=== PATIENT | female | born 1945 | race Two or more races ===

== ENCOUNTER → 2024-08-30 | Outpatient (CLI) | payer MEDICARE, MEDICAID, SELFPAY ==
[2024-08-30 09:14] LABS: Basophils # (Auto) 0.1 Thou/mm3 (0.0-0.2); Basophils % (Auto) 1 % (0-2.5); Eosinophils # (Auto) 0.4 Thou/mm3 (0.0-0.5); Eosinophils % (Auto) 4 % (0-10); Hematocrit 36.8 % (36.0-46.0); Hemoglobin 11.6 g/dL (12.0-16.0); Immature Granulocytes % (Auto) 0 % (0-0); Immature Granulocytes Auto 0.03 Thou/mm3 (0.00-0.00); Lymphocytes # (Auto) 2.3 Thou/mm3 (1.0-4.8); Lymphocytes % (Auto) 25 % (10-50); Mean Corpuscular HGB Conc 31.5 g/dl (31.0-37.0); Mean Corpuscular Hemoglobin 29.8 pg (25.0-35.0); Mean Corpuscular Volume 95 fL (80-100); Monocytes # (Auto) 0.7 Thou/mm3 (0.0-0.8); Monocytes % (Auto) 7 % (0-12); Neutrophils # (Auto) 5.9 Thou/mm3 (1.8-7.7); Neutrophils % (Auto) 63 % (37-80); Nucleated Red Blood Cell % 0 /100 WBC (0); Platelet Count 279 Thou/mm3 (140-440); RDW Standard Deviation 45.7 fL (36.4-46.3); Red Blood Count 3.89 Miln/mm3 (4.00-5.20); White Blood Count 9.4 Thou/mm3 (3.6-11.0)
[2024-08-30 09:27] LABS: Glucose Estimated Average 148 mg/dL (80-131); Hemoglobin A1C 6.8 % Hgb (4.8-6.0)
[2024-08-30 09:43] LABS: Anion Gap 2 (7-16); BUN/Creatinine Ratio 25 Ratio (12-20); Blood Urea Nitrogen 25 mg/dL (9-23); Calcium 9.6 mg/dL (8.3-10.6); Carbon Dioxide 27.6 mMol/L (20.0-31.0); Chloride 110 mMol/L (98-107); Glucose 145 mg/dL (74-106); Osmolality,Calculated 286 (275-295); Potassium 5.2 mMol/L (3.4-5.1); Sodium 140 mMol/L (136-145); eGFR 58 See Note
[2024-08-30 09:49] LABS: Total Iron Binding Capacity 270 mcg/dL (250-425)
[2024-08-30 09:59] LABS: Iron 61 mcg/dL (50-170); Percent Iron Saturation 22 % (20-55); Unsaturated Iron Binding 209 (225-295)
== END | disposition home or self-care (01) ==
LOC: COPL 08:10
PROVIDERS: PCP Family Medicine; Referring Provider Family Medicine; Visit Provider Family Medicine
DX: E11.65 Type 2 diabetes mellitus with hyperglycemia (principal); D64.9 Anemia, unspecified
CPT/HCPCS: 36415; 80048; 83036; 83540; 83550; 85025

== ENCOUNTER → 2024-10-10 | Outpatient (CLI) | payer MEDICARE, MEDICAID, SELFPAY ==
[2024-10-10 09:30] LABS: Basophils # (Auto) 0.1 Thou/mm3 (0.0-0.2); Basophils % (Auto) 1 % (0-2.5); Eosinophils # (Auto) 0.2 Thou/mm3 (0.0-0.5); Eosinophils % (Auto) 2 % (0-10); Hematocrit 35.3 % (36.0-46.0); Hemoglobin 11.3 g/dL (12.0-16.0); Immature Granulocytes % (Auto) 0 % (0-0); Immature Granulocytes Auto 0.02 Thou/mm3 (0.00-0.00); Lymphocytes # (Auto) 2.4 Thou/mm3 (1.0-4.8); Lymphocytes % (Auto) 27 % (10-50); Mean Corpuscular Hemoglobin 30.1 pg (25.0-35.0); Mean Corpuscular Volume 94 fL (80-100); Monocytes # (Auto) 0.5 Thou/mm3 (0.0-0.8); Monocytes % (Auto) 6 % (0-12); Neutrophils # (Auto) 5.8 Thou/mm3 (1.8-7.7); Neutrophils % (Auto) 64 % (37-80); Nucleated Red Blood Cell % 0 /100 WBC (0); Platelet Count 293 Thou/mm3 (140-440); RDW Standard Deviation 44.7 fL (36.4-46.3); Red Blood Count 3.76 Miln/mm3 (4.00-5.20)
[2024-10-10 09:53] LABS: Vitamin B12 828 pg/mL (211-911)
[2024-10-10 10:01] LABS: Alanine Aminotransferase 8 U/L (10-49); Alkaline Phosphatase 94 U/L (46-116); Anion Gap 8 (7-16); Aspartate Amino Transferase 20 U/L (0-34); BUN/Creatinine Ratio 23 Ratio (12-20); Bilirubin,Direct 0.1 mg/dL (0.0-0.3); Bilirubin,Total 0.5 mg/dL (0.3-1.2); Blood Urea Nitrogen 27 mg/dL (9-23); Calcium 9.1 mg/dL (8.3-10.6); Carbon Dioxide 26.1 mMol/L (20.0-31.0); Chloride 105 mMol/L (98-107); Cholesterol 143 mg/dL (132-200); Creatinine (Component) 1.2 mg/dL (0.6-1.3); Glucose 204 mg/dL (74-106); HDL Cholesterol 48 mg/dL (40-60); LDL Cholesterol,Calculated 66 mg/dL (0-130); Osmolality,Calculated 288 (275-295); Potassium 4.9 mMol/L (3.4-5.1); Sodium 139 mMol/L (136-145); Thyroid Stimulating Hormone 0.83 uIU/mL (0.55-4.78); Total Protein 6.9 gm/dL (5.7-8.2); Triglycerides 145 mg/dL (30-150); eGFR 47 See Note
[2024-10-10 11:18] LABS: Glucose Estimated Average 151 mg/dL (80-131); Hemoglobin A1C 6.9 % Hgb (4.8-6.0)
== END | disposition home or self-care (01) ==
LOC: COPL 08:40
PROVIDERS: PCP Family Medicine; Referring Provider Specialist; Visit Provider Specialist
DX: E03.9 Hypothyroidism, unspecified (principal); E11.9 Type 2 diabetes mellitus without complications; E78.00 Pure hypercholesterolemia, unspecified; I11.9 Hypertensive heart disease without heart failure
CPT/HCPCS: 36415; 80048; 80061; 80076; 82607; 83036; 84100; 84443; 85025

== ENCOUNTER 2024-11-10 14:10 | Emergency (ER) | payer MEDICARE, MEDICAID, SELFPAY ==
[2024-11-10 14:11] VITALS: BMI 38.0
[2024-11-10 14:30] VITALS: BP 148/62; PULSE 55; RESP 18; TEMP 36.8; O2SAT 97
--- NOTE | 2024-11-10 14:34 | EKG_ITS ---
[facility] Test Date: 2024-11-10 Pat Name: HARINI GREEN Department: Room: - Gender: Female [employer] Manager: : 1945 Requested By: Mark Leon Order Number: [id number] Reading MD: Mark Leon Measurements Intervals [place] Rate: 55 P: 36 IA: 142 QRS: -1 QRSD: 81 T: 23 QT: 411 QTc: 396 Interpretive Statements SINUS BRADYCARDIA MINIMAL VOLTAGE CRITERIA FOR LVH, CONSIDER NORMAL VARIANT [MEETS CRITERIA IN ONE OF: R(aVL), S(V1), R(V5), R(V5/V6)+S(V1)] Compared to ECG 11/07/2023 13:41:32 Sinus rhythm no longer present /store/S0/[id number].pdf
--- NOTE | 2024-11-10 14:34 | XR_ITS ---
Examination: CT brain head without contrast. 2-D sagittal coronal reconstructions Date and time of exam:November 10, 2024 1524 hrs. Indications: Dizziness lightheadedness today CTDI: vol (mGy):43.8 DLP: (mGycm):855 Technique: Multiple CT axial sections of the brain have been obtained, 5 mm slice thickness. Contrast has not been administered. 2-D sagittal, coronal reconstructions have been obtained Low dose protocols were performed. One or more of the following dose reduction techniques were used; automated exposure control, adjustment of the mA and/or KV according to patient size, use of iterative reconstruction technique. Findings: No significant ventricular enlargement. Intra-axial or extra-axial hemorrhage density is not seen. No mass effect or midline shift Basal cisterns are not remarkable. Fourth ventricle is midline. Cranial vault intact. Impression: Negative for acute hemorrhage, mass effect or midline shift Advise clinical correlation and follow-up accordingly
--- NOTE | 2024-11-10 14:35 | EDRME_ITS ---
Rapid Medical Screening Exam [facility] Arrival date/time: 11/10/24 14:10 79-year-old female with history of hypertension presents to the emergency room with a chief complaint of dizziness x 2 weeks. Patient states for the last 2 days his dizziness has progressively gotten worse. I have greeted and performed a focused initial assessment of this patient. A comprehensive ED assessment and evaluation of the patient, analysis of all test results, and completion of the medical decision making process will be conducted by additional ED providers. Chief Complaint: Dizziness Vital signs: Vital Signs Temperature 98.2 F 11/10/24 14:30 Pulse Rate 55 L 11/10/24 14:30 Respiratory Rate 18 11/10/24 14:30 Blood Pressure 148/62 H 11/10/24 14:30 Pulse Oximetry (%) 97 11/10/24 14:30 Oxygen Delivery Method Room Air 11/10/24 14:30 Vital signs reviewed by provider: Yes
[2024-11-10] MEDS: MECLIZINE HCL 25 MG TABLET 50 MG PO (15:08)
[2024-11-10 15:35] LABS: Basophils # (Auto) 0.1 Thou/mm3 (0.0-0.2); Basophils % (Auto) 1 % (0-2.5); Eosinophils # (Auto) 0.2 Thou/mm3 (0.0-0.5); Eosinophils % (Auto) 2 % (0-10); Hematocrit 36.3 % (36.0-46.0); Hemoglobin 11.7 g/dL (12.0-16.0); Immature Granulocytes % (Auto) 0 % (0-0); Immature Granulocytes Auto 0.04 Thou/mm3 (0.00-0.00); Lymphocytes # (Auto) 2.5 Thou/mm3 (1.0-4.8); Lymphocytes % (Auto) 25 % (10-50); Mean Corpuscular HGB Conc 32.2 g/dl (31.0-37.0); Mean Corpuscular Hemoglobin 30.7 pg (25.0-35.0); Mean Corpuscular Volume 95 fL (80-100); Monocytes # (Auto) 0.5 Thou/mm3 (0.0-0.8); Monocytes % (Auto) 5 % (0-12); Neutrophils # (Auto) 6.6 Thou/mm3 (1.8-7.7); Neutrophils % (Auto) 67 % (37-80); Nucleated Red Blood Cell % 0 /100 WBC (0); Platelet Count 300 Thou/mm3 (140-440); RDW Standard Deviation 44.7 fL (36.4-46.3); Red Blood Count 3.81 Miln/mm3 (4.00-5.20)
[2024-11-10 15:42] LABS: B-Type Natriuretic Peptide 59 pg/mL (0-100)
[2024-11-10 15:44] LABS: Alanine Aminotransferase 19 U/L (10-49); Albumin, Serum 4.5 gm/dL (3.4-4.8); Albumin/Globulin Ratio 1.4 (1.2-2.2); Alkaline Phosphatase 94 U/L (46-116); Anion Gap 7 (7-16); Aspartate Amino Transferase 23 U/L (0-34); BUN/Creatinine Ratio 18 Ratio (12-20); Bilirubin,Total 0.6 mg/dL (0.3-1.2); Blood Urea Nitrogen 21 mg/dL (9-23); Calcium 9.4 mg/dL (8.3-10.6); Calcium (Corrected) 9.4 mg/dL (8.5-10.1); Carbon Dioxide 26.4 mMol/L (20.0-31.0); Chloride 106 mMol/L (98-107); Creatinine (Component) 1.2 mg/dL (0.6-1.3); Estimated Creatinine Clearance 38.8 mL/min (>60); Globulin 3.2 gm/dL (2.3-3.5); Glucose 166 mg/dL (74-106); Osmolality,Calculated 284 (275-295); Potassium 4.8 mMol/L (3.4-5.1); Sodium 139 mMol/L (136-145); Total Protein 7.7 gm/dL (5.7-8.2); Troponin I < 0.020 ng/mL (0.0-0.045); eGFR 47 See Note
[2024-11-10 15:56] LABS: Collection Type, Urine Clean Catch
[2024-11-10 16:03] LABS: Bilirubin,Urine Negative (Negative); Blood,Urine Negative (Negative); Clarity,Urine Clear (Clear/Hazy); Color,Urine Colorless (Lt Yel-Yel); Glucose, Urine 4+ (Negative); Ketones,Urine Negative (Negative); Leukocyte Esterase,Urine Negative (Negative); Nitrite,Urine Negative (Negative); PH,Urine 6.5 (5.0-7.0); Protein,Urine Negative (Neg - Trace); RBC,Urine 1 /hpf (0-3); Specific Gravity,Urine 1.005 (1.001-1.035); Squamous Epithelial Cell,Urine < 1 /hpf (0-5); Urobilinogen,Urine Negative mg/dL (0.0-1.0); WBC,Urine 1 /hpf (0-5)
[2024-11-10 19:16] VITALS: BP 155/74; PULSE 63; RESP 17; TEMP 36.7; O2SAT 99
--- NOTE | 2024-11-10 20:13 | PD.EDDIZZY ---
ED Dizzyness RME/HPI General Chief Complaint: Dizziness Stated Complaint: DIZZINESS, NEAR SYNCOPE [id number] Time Seen by Provider: 11/10/24 19:54 Arrival date/time: 11/10/24 14:10 RME / HPI RME / HPI Narrative: 79-year-old female with history of hypertension presents to the emergency room with a chief complaint of dizziness x 2 weeks. Patient states for the last 2 days his dizziness has progressively gotten worse. Patient was seen by neurologist and was started on scopolamine. Patient dizziness persists. Denies any spinning sensation. Patient is ambulatory denies any fever denies any fall or other complaints. Related Data Home Medications ?Medication ?Instructions ?Recorded ?Confirmed atorvastatin 20 mg tablet (Lipitor) 40 mg PO HS #0 tabs 09/17/16 11/07/23 lisinopril 20 mg tablet 20 mg PO QDAY #0 tabs 03/28/17 11/07/23 amlodipine 5 mg tablet 5 mg PO QDAY 02/15/18 11/07/23 ferrous sulfate 325 mg (65 mg 325 mg PO TID 02/15/18 11/07/23 iron) tablet,delayed release empagliflozin 10 mg tablet 25 mg PO QDAY 03/15/19 11/07/23 (Jardiance) glipizide 5 mg-metformin 500 mg 1 tab PO QID 03/15/19 11/07/23 tablet dicyclomine 10 mg capsule 10 mg PO TID 09/24/20 11/07/23 alprazolam 0.25 mg tablet 0.125 mg PO HS PRN Insomnia 11/08/21 11/07/23 Held on 11/08/21. Instructions: Resume on 11/09/21. metoclopramide HCl 5 mg tablet 5 mg PO TID 11/08/21 11/07/23 Previous Rx's ?Medication ?Instructions ?Recorded cyclobenzaprine 5 mg tablet 5 mg PO .qhs PRN muscle spasm #10 06/01/22 tabs meclizine 25 mg tablet 25 mg PO BID PRN dizziness #14 tabs 11/07/23 diclofenac sodium 1 % topical gel 2 g topical QID #100 grams 12/11/23 lidocaine 5 % topical patch 1 patch topical QDAY PRN pain 12/11/23 (scale score 4-6) #30 ea diazepam 5 mg tablet (Valium) 5 mg PO BID PRN dizziness #14 tabs 11/10/24 Allergies Allergy/AdvReac Type Severity Reaction Status Date / Time hydrocodone Allergy Severe Nausea Verified 11/10/24 14:13 morphine Allergy Severe Vomiting Verified 11/10/24 14:13 codeine AdvReac Severe SICK Verified 11/10/24 14:13 Review of Systems Review of Systems Narrative Review of Systems: Review of system reviewed and within normal limits except mentioned in HPI ED Exam Narrative Physical exam: VITAL SIGNS: Reviewed. GENERAL APPEARANCE: Alert and interactive, follows commands, no acute distress, HEAD AND FACE: Non-traumatic. ENT: PERRL, pink conjunctivitis, eyelid no trauma, Mucous membrane moist. NECK: Supple, nontender, no nuchal rigidity. CHEST: No tenderness, no crepitus, no paradoxical movement, no retractions. LUNGS: Clear, well ventilated, symmetric, no rales, no wheezing, no ronchi, no stridor, good breath sounds bilaterally. HEART: Regular rate, regular rhythm, no murmur, no gallops. ABDOMEN: Soft, positive bowel sounds, nondistended, no guarding, nontender, no rebound, no masses, RECTAL: Deferred. GENITAL: Deferred. NEUROLOGICAL: Gross motor function intact sensory function intact, Appropriate for age. MUSCULOSKELETAL: low back nontender, full range of motion. EXTREMITIES: Nontender, full range of motion. SKIN: Color pink, dry, no rash, no lacerations, no abrasions, no contusions. LYMPHATICS: Deferred. Course Quality Measures none Orders Category Date Time Status EKG (ED ONLY) *Do not use* NOW Care 11/10/24 14:34 Completed Orthostatic Vitals NOW Care 11/10/24 14:[address] head/brain wo con Stat Exams 11/10/24 14:34 Completed EKG (ED Only) Stat Exams 11/10/24 14:34 Draft BNP [B-Type Natriuretic Peptide] Stat Lab 11/10/24 14:57 Completed CBC Stat Lab 11/10/24 14:57 Completed Comprehensive Metabolic Panel Stat Lab 11/10/24 14:57 Completed Troponin I Stat Lab 11/10/24 14:57 Completed Urinalysis Stat Lab 11/10/24 15:42 Completed Urine Culture Stat Lab 11/10/24 15:42 Received Diazepam [Valium] Med 11/10/24 20:10 Discontinued 5 mg PO X1 ONE Meclizine HCl [Antivert] Med 11/10/24 14:34 Discontinued 50 mg PO X1 ONE Vital Signs Vital signs: Vital Signs Temperature 98.2 F 11/10/24 14:30 Pulse Rate 55 L 11/10/24 14:30 Respiratory Rate 18 11/10/24 14:30 Blood Pressure 148/62 H 11/10/24 14:30 Pulse Oximetry (%) 97 11/10/24 14:30 Oxygen Delivery Method Room Air 11/10/24 14:30 Dizziness MDM Narrative MDM Narrative:: 79-year-old female with history of hypertension presents to the emergency room with a chief complaint of dizziness x 2 weeks. Patient states for the last 2 days his dizziness has progressively gotten worse. Patient was seen by neurologist and was started on scopolamine. Patient dizziness persists. Denies any spinning sensation. Patient is ambulatory denies any fever denies any fall or other complaints. Patient's laboratory workup all came back with no leukocytosis, CMP unremarkable except for slightly elevated glucose of [address] scan of the head came back negative for acute hemorrhage. EKG showed sinus bradycardia, ventricular rate of 55 bpm, no ST segment elevation depression noted. Patient was given meclizine with improvement of symptoms Patient was given Valium p.o. in the emergency room with significant improvement in symptoms She was advised to closely follow-up with neurologist next week. Patient appears nontoxic and hemodynamically stable. Patient discharged home and instructed to follow-up with primary care provider in 24 to 48 hours. Instructed to return to the emergency department immediately if worsening of symptoms Patient data External records reviewed:: None Clinical information provided by:: patient Social determinants that could affect healthcare access:: none Patient has the following chronic illnesses:: None How is presenting disease/condition affected by chronic disease/condition?: no chronic disease Evaluation data The following diagnostics were reviewed and interpreted by me:: lab results, radiology exam(s) and EKG tracing(s) Lab and/or radiology exams considered but not ordered:: None Interpretation Summary: See results MDM Medications / Prescriptions Medications or Prescriptions considered but not ordered:: None Medication administrations:: Medication Administration History Discontinued Medications Diazepam (Diazepam 5 Mg Tablet) 5 mg PO X1 ONE Stop: 11/10/24 20:11 Meclizine HCl (Meclizine Hcl 25 Mg Tablet) 50 mg PO X1 ONE Stop: 11/10/24 14:35 Last Admin: 11/10/24 15:08 Dose: 50 mg Documented By: Valium and meclizine Consultations Consultation(s) initiated? (list below): No Diagnosis Dizziness Differential Diagnosis: benign paroxysmal positional vertigo, cerebrovascular accident and other (Dizziness) Most likely diagnosis given after review of the tests above:: Dizziness Admission Indicated Admission indicated?: not indicated Admission Request Was there a request for admission?: No Disposition Plan Disposition Plan: Discharge Discharge Attestation Discharge Attestation: The patient was given an opportunity to ask questions and understood the discharge instructions. Discharge instructions specifically effects, indications for sooner follow up or return to the emergency department, and the expected course of current diagnosis. Patient condition: Stable Discharge Plan Plan Patient Disposition: HOME (Self Care) Disposition Comment: Stable Prescriptions/Referrals Prescriptions/Med Rec: New diazepam [Valium] 5 mg tablet 5 mg PO BID PRN (Reason: dizziness) Qty: 14 0RF No Action atorvastatin [Lipitor] 20 MG tablet 40 mg PO HS Qty: 0 lisinopril 20 MG tablet 20 mg PO QDAY Qty: 0 amlodipine 5 mg Tablet 5 mg PO QDAY ferrous sulfate 325 mg (65 mg iron) Tablet,Delayed Release (Dr/Ec) 325 mg PO TID dicyclomine 10 mg Capsule 10 mg PO TID glipizide-metformin 5-500 mg Tablet 1 tab PO QID Jardiance 10 mg Tablet 25 mg PO QDAY Rx Instructions: at 1200 alprazolam 0.25 mg tablet 0.125 mg PO HS PRN (Reason: Insomnia) Patient Comments: TAKE 1/2 TO 1 (ONE-HALF TO ONE) TABLET BY MOUTH EVERY 12 HOURS NEEDED FOR ANXIETY metoclopramide HCl 5 mg tablet 5 mg PO TID Patient Comments: TOME DALTON TABLETA POR V A ORAL MAHI VECES AL D A 30 MINUTES PRIOR TO MEALS meclizine 25 mg tablet 25 mg PO BID PRN (Reason: dizziness) Qty: 14 0RF cyclobenzaprine 5 mg tablet 5 mg PO .qhs PRN (Reason: muscle spasm) Qty: 10 0RF diclofenac sodium 1 % gel 2 g topical QID Qty: 100 0RF Rx Instructions: apply to back lidocaine 5 % adhesive patch,medicated 1 patch topical QDAY PRN (Reason: pain (scale score 4-6)) Qty: 30 0RF Rx Instructions: leave on most painful area for up to 12 hrs Referrals: No Primary/Family,Physician [Primary Care Provider] - In 1 week Problem List Clinical Impression: Dizziness Patient/Caregiver Discharge Instructions Discharge Activity: activity as tolerated Education Materials: Dizziness Balance Probs Fainting Additional Instructions: Thank you for the opportunity for serving you today. You are stable for discharged . You are advised to: Follow-up with your PCP in 1 to 2 days Return to ED for worsening of symptoms Increase oral fluids Take medication as prescribed Print Language: Kuwaiti Stand Alone Forms: [employer] Award Info., Patient Portal Info Letter PA/TABLE MACHINE OPERATOR Supervising Physician PA/BRITTANIE Supervising Physician: MD Marko
[2024-11-10] MEDS: DIAZEPAM 5 MG TABLET PO (20:16)
== END 2024-11-10 20:22 | disposition home or self-care (01) ==
PROVIDERS: Nurse Practitioner Family; Emergency Provider Emergency Medicine
DX: R42 Dizziness and giddiness (principal); I10 Essential (primary) hypertension
CPT/HCPCS: 36415; 70450; 80053; 81001; 83880; 84484; 85025; 87086; 93005; 99284; A9270

== ENCOUNTER → 2024-12-07 | Outpatient (CLI) | payer MEDICARE, MEDICAID, SELFPAY ==
[2024-12-07 08:44] LABS: Glucose Estimated Average 160 mg/dL (80-131); Hemoglobin A1C 7.2 % Hgb (4.8-6.0)
[2024-12-07 08:48] LABS: Anion Gap 8 (7-16); BUN/Creatinine Ratio 22 Ratio (12-20); Blood Urea Nitrogen 26 mg/dL (9-23); Calcium 8.9 mg/dL (8.3-10.6); Carbon Dioxide 26.5 mMol/L (20.0-31.0); Chloride 109 mMol/L (98-107); Creatinine (Component) 1.2 mg/dL (0.6-1.3); Glucose 122 mg/dL (74-106); Osmolality,Calculated 290 (275-295); Potassium 5.1 mMol/L (3.4-5.1); Sodium 143 mMol/L (136-145); eGFR 47 See Note
== END | disposition home or self-care (01) ==
PROVIDERS: PCP Family Medicine; Referring Provider Family Medicine; Visit Provider Family Medicine
DX: E11.65 Type 2 diabetes mellitus with hyperglycemia (principal)
CPT/HCPCS: 36415; 80048; 83036

== ENCOUNTER 2025-01-27 21:21 | Emergency (ER) | payer MEDICARE, MEDICAID, SELFPAY ==
[2025-01-27 21:29] VITALS: BP 164/72; PULSE 71; RESP 18; TEMP 36.9; O2SAT 95
--- NOTE | 2025-01-27 21:53 | EKG_ITS ---
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
--- NOTE | 2025-01-27 21:53 | XR_ITS ---
Examination: CT brain head without contrast. 2-D sagittal coronal reconstructions Date and time of exam:January 27, 2025, 2222 hours Comparison November 10, 2024. INDICATIONS: Left-sided face and ear pain today CTDI: vol (mGy):43.3 DLP: (mGycm):835 Technique: Multiple CT axial sections of the brain have been obtained, 5 mm slice thickness. Contrast has not been administered. 2-D sagittal, coronal reconstructions have been obtained Low dose protocols were performed. One or more of the following dose reduction techniques were used; automated exposure control, adjustment of the mA and/or KV according to patient size, use of iterative reconstruction technique. Findings: No significant ventricular enlargement. Intra-axial or extra-axial hemorrhage density is not seen. No mass effect or midline shift Basal cisterns are not remarkable. Fourth ventricle is midline. Cranial vault intact. Negative for mastoiditis or otitis media Impression: Negative for acute hemorrhage, mass effect or midline shift
--- NOTE | 2025-01-27 21:54 | EDRME_ITS ---
Rapid Medical Screening Exam [facility] Arrival date/time: 01/27/25 21:21 79F with history of HTN and DM Presents to ED with several months of dizziness. However, several days ago, patient states L-sided ear/facial pain got worse, as well as a source taste in mouth. There is also some tinnitus. Chief Complaint: Dizziness Vital signs: Vital Signs Temperature 98.4 F 01/27/25 21:29 Pulse Rate 71 01/27/25 21:29 Respiratory Rate 18 01/27/25 21:29 Blood Pressure 164/72 H 01/27/25 21:29 Pulse Oximetry (%) 95 01/27/25 21:29 Oxygen Delivery Method Room Air 01/27/25 21:29
[2025-01-27 22:18] LABS: Basophils # (Auto) 0.1 Thou/mm3 (0.0-0.2); Basophils % (Auto) 1 % (0-2.5); Eosinophils # (Auto) 0.3 Thou/mm3 (0.0-0.5); Eosinophils % (Auto) 2 % (0-10); Hematocrit 33.6 % (36.0-46.0); Hemoglobin 11.1 g/dL (12.0-16.0); Immature Granulocytes Auto 0.02 Thou/mm3 (0.00-0.00); Lymphocytes # (Auto) 3.0 Thou/mm3 (1.0-4.8); Lymphocytes % (Auto) 25 % (10-50); Mean Corpuscular HGB Conc 33.0 g/dl (31.0-37.0); Mean Corpuscular Hemoglobin 30.3 pg (25.0-35.0); Mean Corpuscular Volume 92 fL (80-100); Monocytes # (Auto) 0.7 Thou/mm3 (0.0-0.8); Monocytes % (Auto) 6 % (0-12); Neutrophils # (Auto) 7.8 Thou/mm3 (1.8-7.7); Neutrophils % (Auto) 65 % (37-80); Nucleated Red Blood Cell # 0.00 Thou/mm3 (0.00-0.00); Nucleated Red Blood Cell % 0 /100 WBC (0); Platelet Count 310 Thou/mm3 (140-440); RDW Standard Deviation 42.9 fL (36.4-46.3); Red Blood Count 3.66 Miln/mm3 (4.00-5.20); White Blood Count 11.9 Thou/mm3 (3.6-11.0)
--- NOTE | 2025-01-27 22:37 | PD.EDDIZZY ---
ED Dizzyness RME/HPI General Chief Complaint: Dizziness Stated Complaint: DIZZINESS Time Seen by Provider: 01/27/25 22:59 Arrival date/time: 01/27/25 21:21 RME / HPI RME / HPI Narrative: 01/27/25 21:21 79F with history of HTN and DM Presents to ED with several months of dizziness. However, several days ago, patient states L-sided ear/facial pain got worse, as well as a source taste in mouth. There is also some tinnitus. ------ Dr. Lawrence?s Main ED Evaluation: 79yo female with a history of HTN, DM presents to the ED for a chief complaint of dizziness x 3 months. Patient was seen by her PCP when her symptoms started and was given Meclizine, which improved her symptoms, but has since ran out. Patient reports associated nausea, felt faint , and hears a loud sound with pain to her jaw (which worsens her dizziness). Patient was seen by her inspector optical instrument in [place] and was told her heart was fine and to take her prescribed Valium if her symptoms persisted, which she has not. Patient was referred to a neurologist and was supposed to have a scan done, but has not yet. She has not been refered to ENT. She denies any vomiting, diarrhea, decreased hearing or any other associated symptoms. Related Data Home Medications ?Medication ?Instructions ?Recorded ?Confirmed atorvastatin 20 mg tablet (Lipitor) 40 mg PO HS #0 tabs 09/17/16 11/07/23 lisinopril 20 mg tablet 20 mg PO QDAY #0 tabs 03/28/17 11/07/23 amlodipine 5 mg tablet 5 mg PO QDAY 02/15/18 11/07/23 ferrous sulfate 325 mg (65 mg 325 mg PO TID 02/15/18 11/07/23 iron) tablet,delayed release empagliflozin 10 mg tablet 25 mg PO QDAY 03/15/19 11/07/23 (Jardiance) glipizide 5 mg-metformin 500 mg 1 tab PO QID 03/15/19 11/07/23 tablet dicyclomine 10 mg capsule 10 mg PO TID 09/24/20 11/07/23 alprazolam 0.25 mg tablet 0.125 mg PO HS PRN Insomnia 11/08/21 11/07/23 Held on 11/08/21. Instructions: Resume on 11/09/21. metoclopramide HCl 5 mg tablet 5 mg PO TID 11/08/21 11/07/23 Previous Rx's ?Medication ?Instructions ?Recorded cyclobenzaprine 5 mg tablet 5 mg PO .qhs PRN muscle spasm #10 06/01/22 tabs meclizine 25 mg tablet 25 mg PO BID PRN dizziness #14 tabs 11/07/23 diclofenac sodium 1 % topical gel 2 g topical QID #100 grams 12/11/23 lidocaine 5 % topical patch 1 patch topical QDAY PRN pain 12/11/23 (scale score 4-6) #30 ea diazepam 5 mg tablet (Valium) 5 mg PO BID PRN dizziness #14 tabs 11/10/24 meclizine 25 mg tablet 25 mg PO TID PRN dizziness #20 tabs 01/28/25 Allergies Allergy/AdvReac Type Severity Reaction Status Date / Time hydrocodone Allergy Severe Nausea Verified 01/27/25 21:23 morphine Allergy Severe Vomiting Verified 01/27/25 21:23 codeine AdvReac Severe SICK Verified 01/27/25 21:23 Review of Systems Review of Systems Systems Reviewed: All systems reviewed, normal except as documented Past Medical History Past Medical History NEUROLOGIC: Negative Neurological Disorders or Seizures CARDIAC: Positive Cardiac Disorders, Angina, Coronary Artery Disease (HX IN THE PAST), Hypercholesterolemia, Hypertension and Varicose Veins (HAD SURGERY RITA); Negative Congestive Heart Failure, Edema or Cellulitis RESPIRATORY: Positive Sleep Apnea (CPAP); Negative Chronic Obstructive Pulmonary Disease (COPD) or Asthma GASTROINTESTINAL: Positive Gastrointestinal Disorders, Gall Bladder Disease (OPEN) and Obesity; Negative Hepatitis GENITOURINARY: Negative Genitourinary Disorders or Renal Disease REPRODUCTIVE: Positive Previous Pregnancies (X3) MUSCULOSKELETAL: Positive Musculoskeletal Disorders and Fractures (LEFT FOOT. CASTED) ENT: Positive Cataracts (BILAT) ENDOCRINE: Positive Endocrine Disorders, Diabetes Mellitus Type 2 and Hypothyroidism (HAD PARTIAL THYROIDECTOMY TAKES MED); Negative Diabetes Mellitus Type 1 HEMATOLOGIC: Positive Blood Disorders and Anemia (TAKES FERROUS SULFATE); Negative Sickle Cell Disease OTHER HISTORY: Positive Chicken Pox, Measles and Mumps; Negative Hospitalization, Autoimmune Disease, Shingles, Falls, Blood Transfusions, Blood Transfusion Reaction, Anesthesia Reactions, Chemotherapy, Radiation Therapy, MRSA or Cancer Family History FAMILY HISTORY: Positive Family Cardiac Disorders (MOTHER-HTN) and Family Surgery (MOTHER); Negative Family Psychiatric Problems, Family Respiratory Disorders, Family Gastrointestinal Problems, Family Cancer or Family Anesthesia Reaction Surgical History SURGICAL: Positive Cardiac Surgery, Angiogram (5 YEARS AGO), Thyroidectomy (PARTIAL) and Section (X2); Negative Pacemaker Social History SMOKING STATUS: Never smoker ED Exam Narrative Physical exam: GENERAL APPEARANCE: alert and oriented x 4, well-developed, well-nourished, no acute distress VITALS: All vitals were reviewed and the pulse ox is 95% on room air, which is normal according to my interpretation. HEENT: Normocephalic, atraumatic; pupils equal, round, reactive to light; EOMI; nystagmus noted on extraocular movements, mucous membranes pink, moist; oropharynx clear; mild serous effusion at the left ear NECK: Supple LUNGS: CTABL; no wheezes, no rales, no rhonchi HEART: Regular rate, regular rhythm; normal S1, S2; no murmurs ABDOMEN: non distended; normal BS; soft, no tenderness, no guarding, no rebound; no masses, no organomegaly, no hernia BACK: no CVA tenderness EXTREMITIES: atraumatic; no edema NEUROLOGIC: awake; alert and oriented x4; cranial nerves II-XII grossly intact; no focal sensory or motor deficits PSYCHIATRIC: appropriate mood and affect SKIN: warm, dry, normal color; no rashes Course Quality Measures none Orders Category Date Time Status EKG (ED ONLY) *Do not use* NOW Care 01/27/25 21:[address] head/brain wo con Stat Exams 01/27/25 21:53 Completed EKG (ED Only) Stat Exams 01/27/25 21:53 Draft CBC Stat Lab 01/27/25 22:01 Completed CMP [Comprehensive Metabolic Panel] Stat Lab 01/27/25 22:01 Completed Troponin I Stat Lab 01/27/25 22:01 Completed Urinalysis, C/S if Indicated Stat Lab 01/27/25 22:42 Completed Meclizine HCl [Antivert] Med 01/28/25 00:10 Discontinued 25 mg PO X1 ONE Reevaluation(s) Reevaluation #1: Patient states she feels significantly better after receiving Meclizine. Patient is stable to be discharged home. Time: 01:13 Vital Signs Vital signs: Vital Signs Temperature 98.4 F 01/27/25 21:29 Pulse Rate 71 07/11/25 21:29 Respiratory Rate 18 01/27/25 21:29 Blood Pressure 164/72 H 01/27/25 21:29 Pulse Oximetry (%) 95 01/27/25 21:29 Oxygen Delivery Method Room Air 01/27/25 21:29 Dizziness MDM Narrative MDM Narrative:: Scribe Attestation: 01/27/25 - Yael Miguel am scribing for and in the presence of Dr. Lawrence. Patient data External records reviewed:: [facility] previous records (Per chart review, patient was seen here on 11/10/24 for dizziness.) Clinical information provided by:: patient Social determinants that could affect healthcare access:: none Patient has the following chronic illnesses:: DM, HTN, HLD, hypothyroidism How is presenting disease/condition affected by chronic disease/condition?: exacerbated by Evaluation data The following diagnostics were reviewed and interpreted by me:: lab results, radiology exam(s) and EKG tracing(s) Lab and/or radiology exams considered but not ordered:: none Interpretation Summary: WBC 11.9, Creatinine elevated 1.6, Troponin normal. EKG done at 2206, sinus bradycardia, rate of 59, normal intervals, normal axis, no acute ST or T wave changes, according to my interpretation. [facility] Report Signed Patient: HARINI GREEN Record#: [id number] Birthdate: 1945 Age/Sex: 79 / F Location: [facility] Attending Dr: Ordering Physician: Benjamin Hernandez PA-C Date of Service: 01/27/25 Procedure(s): CT head/brain wo con Accession Number(s): [id number] cc: Van Huerta MD; Benjamin Hernandez PA-C~ Examination: CT brain head without contrast. 2-D sagittal coronal reconstructions Date and time of exam:January 27, 2025, 2222 hours Comparison November 10, 2024. INDICATIONS: Left-sided face and ear pain today CTDI: vol (mGy):43.3 DLP: (mGycm):835 Technique: Multiple CT axial sections of the brain have been obtained, 5 mm slice thickness. Contrast has not been administered. 2-D sagittal, coronal reconstructions have been obtained Low dose protocols were performed. One or more of the following dose reduction techniques were used; automated exposure control, adjustment of the mA and/or KV according to patient size, use of iterative reconstruction technique. Findings: No significant ventricular enlargement. Intra-axial or extra-axial hemorrhage density is not seen. No mass effect or midline shift Basal cisterns are not remarkable. Fourth ventricle is midline. Cranial vault intact. Negative for mastoiditis or otitis media Impression: Negative for acute hemorrhage, mass effect or midline shift Dictated By: Van Huerta MD Signed By: <Electronically signed by Van Huerta MD in [place]> 01/27/25 230 Medications / Prescriptions Medications or Prescriptions considered but not ordered:: none Medication administrations:: Medication Administration History Discontinued Medications Meclizine HCl (Meclizine Hcl 25 Mg Tablet) 25 mg PO X1 ONE Stop: 01/28/25 00:11 Last Admin: 01/28/25 00:22 Dose: 25 mg Documented By: WO see above Consultations Consultation(s) initiated? (list below): No Diagnosis Dizziness Differential Diagnosis: benign paroxysmal positional vertigo and other (Meniere's, tinnitus, eustachian tube dysfunction, stroke) Most likely diagnosis given after review of the tests above:: see clinical impression below Admission Indicated Admission indicated?: not indicated Admission Request Was there a request for admission?: No Disposition Plan Disposition Plan: Discharge Discharge Attestation Discharge Attestation: The patient and all family members were given an opportunity to ask questions and understood the discharge instructions. Discharge instructions specifically effects, indications for sooner follow up or return to the emergency department, and the expected course of current diagnosis. Patient condition: Stable Discharge Plan Plan Patient Disposition: HOME (Self Care) Prescriptions/Referrals Prescriptions/Med Rec: New meclizine 25 mg tablet 25 mg PO TID PRN (Reason: dizziness) Qty: 20 0RF No Action atorvastatin [Lipitor] 20 MG tablet 40 mg PO HS Qty: 0 lisinopril 20 MG tablet 20 mg PO QDAY Qty: 0 amlodipine 5 mg Tablet 5 mg PO QDAY ferrous sulfate 325 mg (65 mg iron) Tablet,Delayed Release (Dr/Ec) 325 mg PO TID dicyclomine 10 mg Capsule 10 mg PO TID glipizide-metformin 5-500 mg Tablet 1 tab PO QID Jardiance 10 mg Tablet 25 mg PO QDAY Rx Instructions: at 1200 alprazolam 0.25 mg tablet 0.125 mg PO HS PRN (Reason: Insomnia) Patient Comments: TAKE 1/2 TO 1 (ONE-HALF TO ONE) TABLET BY MOUTH EVERY 12 HOURS NEEDED FOR ANXIETY metoclopramide HCl 5 mg tablet 5 mg PO TID Patient Comments: TOME DALTON TABLETA POR V A ORAL MAHI VECES AL D A 30 MINUTES PRIOR TO MEALS meclizine 25 mg tablet 25 mg PO BID PRN (Reason: dizziness) Qty: 14 0RF cyclobenzaprine 5 mg tablet 5 mg PO .qhs PRN (Reason: muscle spasm) Qty: 10 0RF diclofenac sodium 1 % gel 2 g topical QID Qty: 100 0RF Rx Instructions: apply to back lidocaine 5 % adhesive patch,medicated 1 patch topical QDAY PRN (Reason: pain (scale score 4-6)) Qty: 30 0RF Rx Instructions: leave on most painful area for up to 12 hrs diazepam [Valium] 5 mg tablet 5 mg PO BID PRN (Reason: dizziness) Qty: 14 0RF Referrals: Sera Andrews MD [Primary Care Provider] - In 1 week Problem List Clinical Impression: Dizziness, Ringing in left ear Patient/Caregiver Discharge Instructions Education Materials: Tinnitus (Ringing in the Ears), Vertigo Staying Safe Additional Instructions: Follow up with your neurologist for further workup. The CT scan of your brain performed 01/27/25 was normal. Print Language: Yi Stand Alone Forms: [employer] Award Info., Patient Portal Info Letter
[2025-01-27 22:42] LABS: Alanine Aminotransferase 15 U/L (10-49); Albumin, Serum 4.5 gm/dL (3.4-4.8); Albumin/Globulin Ratio 1.5 (1.2-2.2); Alkaline Phosphatase 90 U/L (46-116); Anion Gap 12 (7-16); Aspartate Amino Transferase 20 U/L (0-34); BUN/Creatinine Ratio 15 Ratio (12-20); Bilirubin,Total 0.4 mg/dL (0.3-1.2); Blood Urea Nitrogen 24 mg/dL (9-23); Calcium 9.6 mg/dL (8.3-10.6); Calcium (Corrected) 9.6 mg/dL (8.5-10.1); Carbon Dioxide 26.2 mMol/L (20.0-31.0); Chloride 104 mMol/L (98-107); Creatinine (Component) 1.6 mg/dL (0.6-1.3); Globulin 3.1 gm/dL (2.3-3.5); Glucose 116 mg/dL (74-106); Osmolality,Calculated 288 (275-295); Potassium 4.5 mMol/L (3.4-5.1); Sodium 142 mMol/L (136-145); Total Protein 7.6 gm/dL (5.7-8.2); Troponin I < 0.020 ng/mL (0.0-0.045); eGFR 33 See Note
[2025-01-27 22:46] LABS: Collection Type, Urine Clean Catch
[2025-01-27 22:59] LABS: Bilirubin,Urine Negative (Negative); Blood,Urine Negative (Negative); Clarity,Urine Clear (Clear/Hazy); Color,Urine Colorless (Lt Yel-Yel); Culture Indicated,Urine Not Indicated; Glucose, Urine 4+ (Negative); Ketones,Urine Negative (Negative); Leukocyte Esterase,Urine Negative (Negative); Nitrite,Urine Negative (Negative); PH,Urine 6.0 (5.0-7.0); Protein,Urine Negative (Neg - Trace); RBC,Urine 1 /hpf (0-3); Specific Gravity,Urine 1.006 (1.001-1.035); Squamous Epithelial Cell,Urine < 1 /hpf (0-5); Urobilinogen,Urine Negative mg/dL (0.0-1.0); WBC,Urine 3 /hpf (0-5)
[2025-01-27 23:00] VITALS: BP 126/60; PULSE 66; RESP 23; TEMP 36.7; O2SAT 96
[2025-01-28] MEDS: MECLIZINE HCL 25 MG TABLET PO (00:22)
[2025-01-28 01:26] VITALS: BP 132/68; PULSE 60; RESP 18; TEMP 36.7; O2SAT 95
== END 2025-01-28 01:28 | disposition home or self-care (01) ==
PROVIDERS: Physician Assistant; Emergency Provider Emergency Medicine; PCP Family Medicine
DX: H93.12 Tinnitus, left ear (principal); R42 Dizziness and giddiness; R00.1 Bradycardia, unspecified; E11.9 Type 2 diabetes mellitus without complications; E78.00 Pure hypercholesterolemia, unspecified
CPT/HCPCS: 36415; 70450; 80053; 81001; 84484; 85025; 99283; A9270

== ENCOUNTER → 2025-02-08 | Outpatient (CLI) | payer MEDICARE, MEDICAID, SELFPAY ==
[2025-02-08 14:50] LABS: Alanine Aminotransferase 16 U/L (10-49); Albumin, Serum 4.3 gm/dL (3.4-4.8); Albumin/Globulin Ratio 1.4 (1.2-2.2); Alkaline Phosphatase 87 U/L (46-116); Anion Gap 7 (7-16); Aspartate Amino Transferase 22 U/L (0-34); BUN/Creatinine Ratio 20 Ratio (12-20); Bilirubin,Total 0.4 mg/dL (0.3-1.2); Blood Urea Nitrogen 26 mg/dL (9-23); Calcium 9.1 mg/dL (8.3-10.6); Calcium (Corrected) 9.1 mg/dL (8.5-10.1); Carbon Dioxide 26.0 mMol/L (20.0-31.0); Chloride 107 mMol/L (98-107); Creatinine (Component) 1.3 mg/dL (0.6-1.3); Globulin 3.0 gm/dL (2.3-3.5); Glucose 120 mg/dL (74-106); Osmolality,Calculated 285 (275-295); Potassium 4.9 mMol/L (3.4-5.1); Sodium 140 mMol/L (136-145); Total Protein 7.3 gm/dL (5.7-8.2); eGFR 42 See Note
== END | disposition home or self-care (01) ==
LOC: COPL 13:17
PROVIDERS: PCP Family Medicine
DX: R42 Dizziness and giddiness (principal)
CPT/HCPCS: 36415; 80053; 82565; 84520

== ENCOUNTER → 2025-02-18 | Outpatient (CLI) | payer MEDICARE, MEDICAID, SELFPAY ==
--- NOTE | 2025-02-18 | XR_ITS ---
Examination: MRI of brain without intravenous contrast. MRI brain with intravenous contrast. Date and time of exam:February 18, 2025 0850 hours INDICATIONS: Vertigo, nausea episodes beginning October 2024 COMPARISON: November 05, 2023 Technique: Multiple axial and sagittal images of the brain to been obtained. Siemens high-resolution 1.52 Jes short bore scanner utilized. Sagittal sections, T1 weighted images, TR 500, TE 14, are performed. Axial sections proton-density and T2-weighted images have been obtained. Inversion recovery axial images, TR 9260, TE 111, TR 2500. Diffusion weighted images, axial sections, TR 4800, TE 128, B value 1000. Axial sections, ADC map, TR 4800, TE 128. Axial and coronal images were also obtained post 17 cc gadolinium administered intravenously. Findings:: Enlargement of the sella turcica is not present. The optic chiasm and infundibular stalk are not remarkable. There is no localized enlargement of the medulla or bradley. Fourth ventricle and cerebellar tonsils appear normal in position. No subacute area of hemorrhage density is seen. Fourth ventricle is midline. Mass in the cerebellopontine angle region is not evident. 7th and 8th nerve complexes exhibit symmetry Globes are symmetrical Orbital musculature including medial lateral rectus muscles do not exhibit abnormality Increased white matter signal is moderate Effacement of the cortical sulcal markings is not identified. Mass effect upon the ventricular system is not identified. Diffusion-weighted images demonstrate no focus of restricted diffusion Contrast images demonstrate no abnormal enhancement Impression: Negative for acute hemorrhage mass effect or midline shift. No acute infarct No abnormal enhancing cerebellar or cerebral lesions No enhancing acoustic neurinoma
== END | disposition home or self-care (01) ==
LOC: SMRI 07:31
PROVIDERS: Referring Provider Otolaryngology; Visit Provider Otolaryngology
DX: R42 Dizziness and giddiness (principal)
CPT/HCPCS: 70553; A9579

== ENCOUNTER → 2025-04-05 | Outpatient (CLI) | payer MEDICARE, MEDICAID, SELFPAY ==
[2025-04-05 09:52] LABS: Glucose Estimated Average 148 mg/dL (80-131); Hemoglobin A1C 6.8 % Hgb (4.8-6.0)
[2025-04-05 10:13] LABS: Albumin, Serum 4.0 gm/dL (3.4-4.8); Anion Gap 8 (7-16); BUN/Creatinine Ratio 18 Ratio (12-20); Blood Urea Nitrogen 25 mg/dL (9-23); Calcium 9.2 mg/dL (8.3-10.6); Calcium (Corrected) 9.2 mg/dL (8.5-10.1); Carbon Dioxide 26.0 mMol/L (20.0-31.0); Chloride 109 mMol/L (98-107); Creatinine (Component) 1.4 mg/dL (0.6-1.3); Glucose 153 mg/dL (74-106); Osmolality,Calculated 292 (275-295); Phosphorous 4.0 mg/dL (2.4-5.1); Potassium 5.3 mMol/L (3.4-5.1); Sodium 143 mMol/L (136-145); eGFR 39 See Note
== END | disposition home or self-care (01) ==
LOC: COPL 08:23
PROVIDERS: PCP Family Medicine; Referring Provider Specialist; Visit Provider Specialist
DX: I11.9 Hypertensive heart disease without heart failure (principal); E11.9 Type 2 diabetes mellitus without complications
CPT/HCPCS: 36415; 80069; 83036

== ENCOUNTER 2025-05-12 09:54 | Emergency (ER) | payer MEDICARE, SELFPAY ==
[2025-05-12 09:55] VITALS: BMI 37.0
--- NOTE | 2025-05-12 10:24 | EDNOTE_ITS ---
ED Back Injury Pain RME/HPI General Chief Complaint: Back Pain/Injury Stated Complaint: L LOWER BACK PAIN S/P MOVING STUFF Time Seen by Provider: 05/12/25 09:59 Source: patient Arrival date/time: 05/12/25 09:54 79-year-old female with no known medical history presents to the emergency room with a chief complaint of pain and tenderness to her left lower muscular hip area x 2 days Mode of arrival: ambulatory Limitations: no limitations Related Data Home Medications ?Medication ?Instructions ?Recorded ?Confirmed atorvastatin 20 mg tablet (Lipitor) 40 mg PO HS #0 tab s 09/17/16 11/07/23 lisinopril 20 mg tablet 20 mg PO QDAY #0 tabs 11/07/23 amlodipine 5 mg tablet 5 mg PO QDAY 02/15/18 ferrous sulfate 325 mg (65 mg 325 mg PO TID 02/15/18 0 11/07/23 iron) tablet,delayed release empagliflozin 10 mg tablet 25 mg PO QDAY 03/15/1910/19 (Jardiance) glipizide 5 mg-metformin 500 mg 1 tab PO QID 03/15/19 11/07/23 tablet dicyclomine 10 mg capsule 10 mg PO TID 09/24/20 alprazolam 0.25 mg tablet 0.125 mg PO HS PRN Insomnia 11/08/21 11/07/23 Held on 11/08/21. Instructions: Resume on 11/09/21. metoclopramide HCl 5 mg tablet 5 mg PO TID 11/08/21 Previous Rx's ?Medication ?Instructions ?Recorded cyclobenzaprine 5 mg tablet 5 mg PO .qhs PRN muscle sp asm #10 06/01/22 tabs meclizine 25 mg tablet 25 mg PO BID PRN dizziness # 14 tabs 11/07/23 diclofenac sodium 1 % topical gel 2 g topical QID #100 grams 12/11/23 lidocaine 5 % topical patch 1 patch topical QDAY PRN p ain 12/11/23 (scale score 4-6) #30 ea diazepam 5 mg tablet (Valium) 5 mg PO BID PRN dizzines s #14 tabs 11/10/24 meclizine 25 mg tablet 25 mg PO TID PRN dizziness # 20 tabs 01/28/25 ibuprofen 800 mg tablet 800 mg PO Q8H #20 tabs 05/12 Allergies Allergy/AdvReac Type Severity Reaction Status Date / Time hydrocodone Allergy Severe Nausea Verified 05/12/25 09:57 morphine Allergy Severe Vomiting Verified 05/12/25 09:57 codeine AdvReac Severe SICK Verified 05/12/25 09:57 Review of Systems Review of Systems Systems Reviewed: All systems reviewed, normal except as documented Constitutional Constitutional: Reports system reviewed and no additional complaints, except as documented, Denies fatigue, Denies fever(s), Denies headache(s) and Denies weakness Eyes Eyes: Reports system reviewed and no additional complaints, except as documented, Denies blurry vision and Denies change in vision ENT Ears, Nose, Mouth, and Throat: Reports system reviewed and no additional complaints, except as documented, Denies otalgia, Denies headache(s), Denies nasal congestion, Denies throat swelling and Denies vertigo Cardiovascular Cardiovascular: Reports system reviewed and no additional complaints, except as documented, Denies chest pain, Denies dyspnea and Denies dyspnea on exertion Respiratory Respiratory: Reports system reviewed and no additional complaints, except as documented, Denies chest congestion, Denies cough, Denies dyspnea, Denies dyspnea on exertion and Denies wheezing Gastrointestinal Gastrointestinal: Reports system reviewed and no additional complaints, except as documented, Denies abdominal pain, Denies cramping, Denies nausea and Denies vomiting Genitourinary Genitourinary: Reports system reviewed and no additional complaints, except as documented Musculoskeletal Musculoskeletal: Reports system reviewed and no additional complaints, except as documented, Reports arthralgias, Denies back pain, Reports joint swelling, Reports limited range of motion and Reports muscle weakness Integumentary/Breasts Skin/Breast: Reports system reviewed and no additional complaints, except as documented and Denies wounds Neurologic Neurologic: Reports system reviewed and no additional complaints, except as documented, Denies confusion, Denies headache(s), Denies lack of coordination, Denies vertigo and Denies weakness Psychiatric Psychiatric: Reports system reviewed and no additional complaints, except as documented, Denies anxiety, Denies confusion, Denies depression, Denies paranoia, Denies suicidal ideation and Denies tactile hallucinations Endocrine Endocrine: Reports system reviewed and no additional complaints, except as documented and Denies fatigue Hematologic/Lymphatic Hematologic/Lymphatic: Reports system reviewed and no additional complaints, except as documented and Denies lymphadenopathy Allergic/Immunologic Allergic/Immunologic: Reports system reviewed and no additional complaints, except as documented, Denies throat swelling, Denies urticaria and Denies wheezing Past Medical History Past Medical History NEUROLOGIC: Negative Neurological Disorders or Seizures CARDIAC: Positive Cardiac Disorders, Angina, Coronary Artery Disease (HX IN THE PAST), Hypercholesterolemia, Hypertension and Varicose Veins (HAD SURGERY RITA); Negative Congestive Heart Failure, Edema or Cellulitis RESPIRATORY: Positive Sleep Apnea (CPAP); Negative Chronic Obstructive Pulmonary Disease (COPD) or Asthma GASTROINTESTINAL: Positive Gastrointestinal Disorders, Gall Bladder Disease (OPEN) and Obesity; Negative Hepatitis GENITOURINARY: Negative Genitourinary Disorders or Renal Disease REPRODUCTIVE: Positive Previous Pregnancies (X3) MUSCULOSKELETAL: Positive Musculoskeletal Disorders and Fractures (LEFT FOOT. CASTED) ENT: Positive Cataracts (BILAT) ENDOCRINE: Positive Endocrine Disorders, Diabetes Mellitus Type 2 and Hypothyroidism (HAD PARTIAL THYROIDECTOMY TAKES MED); Negative Diabetes Mellitus Type 1 HEMATOLOGIC: Positive Blood Disorders and Anemia (TAKES FERROUS SULFATE); Negative Sickle Cell Disease OTHER HISTORY: Positive Chicken Pox, Measles and Mumps; Negative Hospitalization, Autoimmune Disease, Shingles, Falls, Blood Transfusions, Blood Transfusion Reaction, Anesthesia Reactions, Chemotherapy, Radiation Therapy, MRSA or Cancer Family History FAMILY HISTORY: Positive Family Cardiac Disorders (MOTHER-HTN) and Family Surgery (MOTHER); Negative Family Psychiatric Problems, Family Respiratory Disorders, Family Gastrointestinal Problems, Family Cancer or Family Anesthesia Reaction Surgical History SURGICAL: Positive Cardiac Surgery, Angiogram (5 YEARS AGO), Thyroidectomy (PARTIAL) and Section (X2); Negative Pacemaker Social History SMOKING STATUS: Never smoker ED Exam General Limitations: Present no limitations General appearance: Present alert and in no apparent distress Head Head exam: Present atraumatic Eye Eye exam: Present normal appearance, PERRL and EOMI ENT ENT exam: Present normal exam, normal oropharynx and mucous membranes moist Neck Neck exam: Present normal inspection, full ROM and trachea midline Chest Chest inspection: Present normal inspection and symmetric chest wall rise Respiratory Respiratory exam: Present normal lung sounds bilaterally Cardiovascular Cardiovascular exam: Present regular rate, normal rhythm and normal heart sounds Abdominal Exam Abdominal exam: Present soft and normal bowel sounds Extremities Exam Extremities exam: Present normal inspection and full ROM Back Exam Back exam: Present normal inspection, full ROM and vertebral tenderness Back 1 view image: 2 1. Pain and tenderness to the left hip area Neurological Exam Neurological exam: Present alert, oriented X3 and CN II-XII intact Psychiatric Psychiatric exam: Present normal affect and normal mood Skin Skin exam: Present warm, dry, intact and normal color Course Quality Measures none Orders Category Date Time Status Ketorolac Inj [Toradol Inj] Med 05/12/25 10:24 Discontinued 30 mg IM X1 ONE Vital Signs Vital signs: Vital Signs Temperature 98 F 05/12/25 10:25 Pulse Rate 68 05/12/25 10:25 Respiratory Rate 18 05/12/25 10:25 Blood Pressure 159/79 H 05/12/25 10:25 Pulse Oximetry (%) 99 05/12/25 10:25 Oxygen Delivery Method Room Air 05/12/25 10:25 Back Pain / Injury MDM Narrative MDM Narrative:: 79-year-old female with no known medical history presents to the emergency room with a chief complaint of pain and tenderness to her left lower muscular hip area x 2 days Patient is hemodynamically stable and in no apparent distress Physical examination shows tenderness and pain to the left hip area with palpation. Patient denies any trauma patient denies any fall patient states his pain is all muscular and there is no pain in the joint or in the lumbar spine with palpation. Patient states this pain occurred when she was cleaning out her garage and lifting some equipment. Patient states she was doing a lot of turning and twisting and woke up with this pain. Patient states she took some cyclobenzaprine from a previous injury that had some improvement to her symptoms. A shot of Toradol was given to the patient with improvement of her symptoms and the patient was discharged and educated to follow-up with her primary care provider in the next 24 to 48 hours Patient data External records reviewed:: [facility] previous records Clinical information provided by:: patient Social determinants that could affect healthcare access:: none Patient has the following chronic illnesses:: No chronic illness How is presenting disease/condition affected by chronic disease/condition?: no chronic disease Evaluation data The following diagnostics were reviewed and interpreted by me:: lab results and radiology exam(s) Lab and/or radiology exams considered but not ordered:: Labs and radiology exams considered and ordered Interpretation Summary: N/A Medications / Prescriptions Medications or Prescriptions considered but not ordered:: Medication given Medication administrations:: Medication Administration History Discontinued Medications Ketorolac Tromethamine (Ketorolac Inj 60 Mg/2 Ml Vial) 30 mg IM X1 ONE Stop: 05/12/25 10:25 Last Admin: 05/12/25 10:31 Dose: 30 mg Documented By: MF Medication given Consultations Consultation(s) initiated? (list below): No Diagnosis Differential diagnosis back pain/injury: sciatica, strain of lumbar region and discitis Most likely diagnosis given after review of the tests above:: Strain of lumbar region Admission Indicated Admission indicated?: not indicated Admission Request Was there a request for admission?: No Disposition Plan Disposition Plan: Discharge Discharge Attestation Discharge Attestation: The patient and all family members were given an opportunity to ask questions and understood the discharge instructions. Discharge instructions specifically effects, indications for sooner follow up or return to the emergency department, and the expected course of current diagnosis. Patient condition: Stable Discharge Plan Plan Patient Disposition: HOME (Self Care) Discharge Disposition comment: Stable Prescriptions/Referrals Prescriptions/Med Rec: New ibuprofen 800 mg tablet 800 mg PO Q8H Qty: 20 0RF No Action atorvastatin [Lipitor] 20 MG tablet 40 mg PO HS Qty: 0 lisinopril 20 MG tablet 20 mg PO QDAY Qty: 0 amlodipine 5 mg Tablet 5 mg PO QDAY ferrous sulfate 325 mg (65 mg iron) Tablet,Delayed Release (Dr/Ec) 325 mg PO TID dicyclomine 10 mg Capsule 10 mg PO TID glipizide-metformin 5-500 mg Tablet 1 tab PO QID Jardiance 10 mg Tablet 25 mg PO QDAY Rx Instructions: at 1200 alprazolam 0.25 mg tablet 0.125 mg PO HS PRN (Reason: Insomnia) Patient Comments: TAKE 1/2 TO 1 (ONE-HALF TO ONE) TABLET BY MOUTH EVERY 12 HOURS NEEDED FOR ANXIETY metoclopramide HCl 5 mg tablet 5 mg PO TID Patient Comments: TOME DALTON TABLETA POR V A ORAL MAHI VECES AL D A 30 MINUTES PRIOR TO MEALS meclizine 25 mg tablet 25 mg PO BID PRN (Reason: dizziness) Qty: 14 0RF cyclobenzaprine 5 mg tablet 5 mg PO .qhs PRN (Reason: muscle spasm) Qty: 10 0RF diclofenac sodium 1 % gel 2 g topical QID Qty: 100 0RF Rx Instructions: apply to back lidocaine 5 % adhesive patch,medicated 1 patch topical QDAY PRN (Reason: pain (scale score 4-6)) Qty: 30 0RF Rx Instructions: leave on most painful area for up to 12 hrs diazepam [Valium] 5 mg tablet 5 mg PO BID PRN (Reason: dizziness) Qty: 14 0RF meclizine 25 mg tablet 25 mg PO TID PRN (Reason: dizziness) Qty: 20 0RF Problem List Clinical Impression: Strain of lumbar region Patient/Caregiver Discharge Instructions Education Materials: ED Back Sprain/Strain Additional Instructions: Por favor, consulte con rodrigez m?dico de cabecera en las pr?ximas 24 a 48 horas. El medicamento fue enviado a rodrigez farmacia; rec?jalo y t?ceja seg?n lo indicado. Si observa cualquier evidencia de empeoramiento de los signos o s?ntomas, regrese a la sierra de emergencias de inmediato. Print Language: Egyptian Stand Alone Forms: [employer] Award Info., Patient Portal Info Letter PA/[employer] DIST[employer]ION AND EMERGENCY CLERK Supervising Physician PA/[employer] EM[employer]GENCY CLERK Supervising Physician: Dr. Collins
[2025-05-12 10:25] VITALS: BP 159/79; PULSE 68; RESP 18; TEMP 36.6; O2SAT 99
[2025-05-12] MEDS: KETOROLAC INJ 60 MG/2 ML VIAL 30 MG IM (10:31)
== END 2025-05-12 10:36 | disposition home or self-care (01) ==
PROVIDERS: Emergency Provider Family Medicine; PCP Family Medicine
DX: S39.012A Strain of muscle, fascia and tendon of lower back, initial encounter (principal); X58.XXXA Exposure to other specified factors, initial encounter
CPT/HCPCS: 96372; 99281; J1885

== ENCOUNTER 2025-05-15 06:35 | Emergency (ER) | payer MEDICARE, MEDICAID, SELFPAY ==
[2025-05-15 06:36] VITALS: BMI 36.1
[2025-05-15 06:42] VITALS: BP 140/70; PULSE 63; TEMP 36.6; O2SAT 99; BMI 34.5
--- NOTE | 2025-05-15 06:50 | XR_ITS ---
EXAMINATION: Lumbar spine 3 views TECHNIQUE: 1. AP lateral: Lateral lower lumbar spine 3 views Date and time: May 15, 2025, 0704 hours INDICATIONS: Injury to lower back 3 days ago with lower back pain. FINDINGS: Satisfactory alignment lumbar vertebral bodies No lumbar fracture Advanced disc narrowing L5-S1 Prominent lumbar spondylosis IMPRESSION: No lumbar fracture
--- NOTE | 2025-05-15 07:22 | PD.EDBACK ---
ED Back Injury Pain RME/HPI General Chief Complaint: Back Pain/Injury Stated Complaint: BACK PAIN Time Seen by Provider: 05/15/25 06:42 Source: patient Arrival date/time: 05/15/25 06:35 79-year-old female with no known medical history presents to the emergency room with a chief complaint of lumbar back pain after moving some equipment in her garage 4 days ago Mode of arrival: ambulatory Limitations: no limitations Related Data Home Medications ?Medication ?Instructions ?Recorded ?Confirmed atorvastatin 20 mg tablet (Lipitor) 40 mg PO HS #0 tabs 09/17/16 11/07/23 lisinopril 20 mg tablet 20 mg PO QDAY #0 tabs 03/28/17 11/07/23 amlodipine 5 mg tablet 5 mg PO QDAY 02/15/18 11/07/23 ferrous sulfate 325 mg (65 mg 325 mg PO TID 02/15/18 11/07/23 iron) tablet,delayed release empagliflozin 10 mg tablet 25 mg PO QDAY 03/15/19 11/07/23 (Jardiance) glipizide 5 mg-metformin 500 mg 1 tab PO QID 03/15/19 11/07/23 tablet dicyclomine 10 mg capsule 10 mg PO TID 09/24/20 11/07/23 alprazolam 0.25 mg tablet 0.125 mg PO HS PRN Insomnia 11/08/21 11/07/23 Held on 11/08/21. Instructions: Resume on 11/09/21. metoclopramide HCl 5 mg tablet 5 mg PO TID 11/08/21 11/07/23 Previous Rx's ?Medication ?Instructions ?Recorded cyclobenzaprine 5 mg tablet 5 mg PO .qhs PRN muscle spasm #10 06/01/22 tabs meclizine 25 mg tablet 25 mg PO BID PRN dizziness #14 tabs 11/07/23 diclofenac sodium 1 % topical gel 2 g topical QID #100 grams 12/11/23 lidocaine 5 % topical patch 1 patch topical QDAY PRN pain 12/11/23 (scale score 4-6) #30 ea diazepam 5 mg tablet (Valium) 5 mg PO BID PRN dizziness #14 tabs 11/10/24 meclizine 25 mg tablet 25 mg PO TID PRN dizziness #20 tabs 01/28/25 ibuprofen 800 mg tablet 800 mg PO Q8H #20 tabs 05/12/25 Allergies Allergy/AdvReac Type Severity Reaction Status Date / Time hydrocodone Allergy Severe Nausea Verified 05/15/25 06:36 morphine Allergy Severe Vomiting Verified 05/15/25 06:36 codeine AdvReac Severe SICK Verified 05/15/25 06:36 Review of Systems Review of Systems Systems Reviewed: All systems reviewed, normal except as documented Constitutional Constitutional: Reports system reviewed and no additional complaints, except as documented, Denies fatigue, Denies fever(s), Denies headache(s) and Denies weakness Eyes Eyes: Reports system reviewed and no additional complaints, except as documented, Denies blurry vision and Denies change in vision ENT Ears, Nose, Mouth, and Throat: Reports system reviewed and no additional complaints, except as documented, Denies otalgia, Denies headache(s), Denies nasal congestion, Denies throat swelling and Denies vertigo Cardiovascular Cardiovascular: Reports system reviewed and no additional complaints, except as documented, Denies chest pain, Denies dyspnea and Denies dyspnea on exertion Respiratory Respiratory: Reports system reviewed and no additional complaints, except as documented, Denies chest congestion, Denies cough, Denies dyspnea, Denies dyspnea on exertion and Denies wheezing Gastrointestinal Gastrointestinal: Reports system reviewed and no additional complaints, except as documented, Denies abdominal pain, Denies cramping, Denies nausea and Denies vomiting Genitourinary Genitourinary: Reports system reviewed and no additional complaints, except as documented Musculoskeletal Musculoskeletal: Reports system reviewed and no additional complaints, except as documented and Reports back pain Integumentary/Breasts Skin/Breast: Reports system reviewed and no additional complaints, except as documented and Denies wounds Neurologic Neurologic: Reports system reviewed and no additional complaints, except as documented, Denies confusion, Denies headache(s), Denies lack of coordination, Denies vertigo and Denies weakness Psychiatric Psychiatric: Reports system reviewed and no additional complaints, except as documented, Denies anxiety, Denies confusion, Denies depression, Denies paranoia, Denies suicidal ideation and Denies tactile hallucinations Endocrine Endocrine: Reports system reviewed and no additional complaints, except as documented and Denies fatigue Hematologic/Lymphatic Hematologic/Lymphatic: Reports system reviewed and no additional complaints, except as documented and Denies lymphadenopathy Allergic/Immunologic Allergic/Immunologic: Reports system reviewed and no additional complaints, except as documented, Denies throat swelling, Denies urticaria and Denies wheezing Past Medical History Past Medical History NEUROLOGIC: Negative Neurological Disorders or Seizures CARDIAC: Positive Cardiac Disorders, Angina, Coronary Artery Disease (HX IN THE PAST), Hypercholesterolemia, Hypertension and Varicose Veins (HAD SURGERY RITA); Negative Congestive Heart Failure, Edema or Cellulitis RESPIRATORY: Positive Sleep Apnea (CPAP); Negative Chronic Obstructive Pulmonary Disease (COPD) or Asthma GASTROINTESTINAL: Positive Gastrointestinal Disorders, Gall Bladder Disease (OPEN) and Obesity; Negative Hepatitis GENITOURINARY: Negative Genitourinary Disorders or Renal Disease REPRODUCTIVE: Positive Previous Pregnancies (X3) MUSCULOSKELETAL: Positive Musculoskeletal Disorders and Fractures (LEFT FOOT. CASTED) ENT: Positive Cataracts (BILAT) ENDOCRINE: Positive Endocrine Disorders, Diabetes Mellitus Type 2 and Hypothyroidism (HAD PARTIAL THYROIDECTOMY TAKES MED); Negative Diabetes Mellitus Type 1 HEMATOLOGIC: Positive Blood Disorders and Anemia (TAKES FERROUS SULFATE); Negative Sickle Cell Disease OTHER HISTORY: Positive Chicken Pox, Measles and Mumps; Negative Hospitalization, Autoimmune Disease, Shingles, Falls, Blood Transfusions, Blood Transfusion Reaction, Anesthesia Reactions, Chemotherapy, Radiation Therapy, MRSA or Cancer Family History FAMILY HISTORY: Positive Family Cardiac Disorders (MOTHER-HTN) and Family Surgery (MOTHER); Negative Family Psychiatric Problems, Family Respiratory Disorders, Family Gastrointestinal Problems, Family Cancer or Family Anesthesia Reaction Surgical History SURGICAL: Positive Cardiac Surgery, Angiogram (5 YEARS AGO), Thyroidectomy (PARTIAL) and Section (X2); Negative Pacemaker Social History SMOKING STATUS: Never smoker ED Exam General Limitations: Present no limitations General appearance: Present alert and in no apparent distress Head Head exam: Present atraumatic Eye Eye exam: Present normal appearance, PERRL and EOMI ENT ENT exam: Present normal exam, normal oropharynx and mucous membranes moist Neck Neck exam: Present normal inspection, full ROM and trachea midline Chest Chest inspection: Present normal inspection and symmetric chest wall rise Respiratory Respiratory exam: Present normal lung sounds bilaterally Cardiovascular Cardiovascular exam: Present regular rate, normal rhythm and normal heart sounds Abdominal Exam Abdominal exam: Present soft and normal bowel sounds Extremities Exam Extremities exam: Present normal inspection and full ROM Back Exam Back exam: Present normal inspection, full ROM and vertebral tenderness; Absent CVA tenderness (R) or CVA tenderness (L) Neurological Exam Neurological exam: Present alert, oriented X3 and CN II-XII intact Psychiatric Psychiatric exam: Present normal affect and normal mood Skin Skin exam: Present warm, dry, intact and normal color Course Quality Measures none Orders Category Date Time Status XR lumbar spine 2-3V Stat Exams 05/15/25 06:50 Completed Ketorolac Inj [Toradol Inj] Med 05/15/25 06:50 Discontinued 30 mg IM X1 ONE Vital Signs Vital signs: Vital Signs Temperature 97.9 F 05/15/25 06:42 Pulse Rate 63 05/15/25 06:42 Blood Pressure 140/70 H 05/15/25 06:42 Pulse Oximetry (%) 99 05/15/25 06:42 Oxygen Delivery Method Room Air 05/15/25 06:42 Back Pain / Injury MDM Narrative MDM Narrative:: 79-year-old female with no known medical history presents to the emergency room with a chief complaint of lumbar back pain after moving some equipment in her garage 4 days ago Patient is hemodynamically stable and in no apparent distress Patient was seen here 4 days ago and states that after receiving the Toradol injection her pain significantly improved and she is returning for repeat Toradol shot Patient states her pain is getting a little better but she is still having pain when she bends over. An x-ray of the lumbar spine was completed and was negative for any acute fractures or dislocations A Toradol injection was given Patient was discharged and educated to follow-up with primary care provider in the next 24 to 48 hours and return to the emergency room for any evidence of worsening signs or symptoms Patient data External records reviewed:: [facility] previous records Clinical information provided by:: patient Social determinants that could affect healthcare access:: none Patient has the following chronic illnesses:: Hypertension, hyperlipidemia, type 2 diabetes How is presenting disease/condition affected by chronic disease/condition?: uneffected by Evaluation data The following diagnostics were reviewed and interpreted by me:: lab results and radiology exam(s) Lab and/or radiology exams considered but not ordered:: Labs and radiology exams considered and not ordered Interpretation Summary: X-ray lumbar-FINDINGS: Satisfactory alignment lumbar vertebral bodies No lumbar fracture Advanced disc narrowing [id number] Prominent lumbar spondylosis IMPRESSION: No lumbar fracture Medications / Prescriptions Medications or Prescriptions considered but not ordered:: Medication given Medication administrations:: Medication Administration History Discontinued Medications Ketorolac Tromethamine (Ketorolac Inj 60 Mg/2 Ml Vial) 30 mg IM X1 ONE Stop: 05/15/25 06:51 Last Admin: 05/15/25 07:32 Dose: 30 mg Documented By: [facility] Medication given Consultations Consultation(s) initiated? (list below): No Diagnosis Differential diagnosis back pain/injury: lumbar radiculopathy, strain of lumbar region, thoracic back pain and discitis Most likely diagnosis given after review of the tests above:: Lumbar sprain Admission Indicated Admission indicated?: not indicated Admission Request Was there a request for admission?: No Disposition Plan Disposition Plan: Discharge Discharge Attestation Discharge Attestation: The patient and all family members were given an opportunity to ask questions and understood the discharge instructions. Discharge instructions specifically effects, indications for sooner follow up or return to the emergency department, and the expected course of current diagnosis. Patient condition: Stable Discharge Plan Plan Patient Disposition: HOME (Self Care) Discharge Disposition comment: Stable Prescriptions/Referrals Prescriptions/Med Rec: No Action atorvastatin [Lipitor] 20 MG tablet 40 mg PO HS Qty: 0 lisinopril 20 MG tablet 20 mg PO QDAY Qty: 0 amlodipine 5 mg Tablet 5 mg PO QDAY ferrous sulfate 325 mg (65 mg iron) Tablet,Delayed Release (Dr/Ec) 325 mg PO TID dicyclomine 10 mg Capsule 10 mg PO TID glipizide-metformin 5-500 mg Tablet 1 tab PO QID Jardiance 10 mg Tablet 25 mg PO QDAY Rx Instructions: at 1200 alprazolam 0.25 mg tablet 0.125 mg PO HS PRN (Reason: Insomnia) Patient Comments: TAKE 1/2 TO 1 (ONE-HALF TO ONE) TABLET BY MOUTH EVERY 12 HOURS NEEDED FOR ANXIETY metoclopramide HCl 5 mg tablet 5 mg PO TID Patient Comments: TOME DALTON TABLETA POR V A ORAL MAHI VECES AL D A 30 MINUTES PRIOR TO MEALS meclizine 25 mg tablet 25 mg PO BID PRN (Reason: dizziness) Qty: 14 0RF ibuprofen 800 mg tablet 800 mg PO Q8H Qty: 20 0RF cyclobenzaprine 5 mg tablet 5 mg PO .qhs PRN (Reason: muscle spasm) Qty: 10 0RF diclofenac sodium 1 % gel 2 g topical QID Qty: 100 0RF Rx Instructions: apply to back lidocaine 5 % adhesive patch,medicated 1 patch topical QDAY PRN (Reason: pain (scale score 4-6)) Qty: 30 0RF Rx Instructions: leave on most painful area for up to 12 hrs diazepam [Valium] 5 mg tablet 5 mg PO BID PRN (Reason: dizziness) Qty: 14 0RF meclizine 25 mg tablet 25 mg PO TID PRN (Reason: dizziness) Qty: 20 0RF Referrals: Sera Andrews MD [Primary Care Provider, Family Practice] - In 1 week Problem List Clinical Impression: Strain of lumbar region Patient/Caregiver Discharge Instructions Education Materials: ED Back Sprain/Strain Additional Instructions: Por favor, consulte con rodrigez m?dico de cabecera en las pr?ximas 24 a 48 horas. La radiograf?a de rodrigez columna lumbar fue negativa para cualquier hallazgo charleen. Si hay alguna evidencia de empeoramiento de los signos o s?ntomas, regrese a la sierra de emergencias inmediatamente. Print Language: Armenian Stand Alone Forms: [employer] Award Info., Patient Portal Info Letter PA/RUBBER MIXER Supervising Physician PA/RUBBER MIXER Supervising Physician: Dr. Collins
[2025-05-15] MEDS: KETOROLAC INJ 60 MG/2 ML VIAL 30 MG IM (07:32)
== END 2025-05-15 10:08 | disposition home or self-care (01) ==
PROVIDERS: Emergency Provider Emergency Medicine; PCP Family Medicine
DX: S39.012A Strain of muscle, fascia and tendon of lower back, initial encounter (principal); Z90.89 Acquired absence of other organs; M47.816 Spondylosis without myelopathy or radiculopathy, lumbar region; Z95.0 Presence of cardiac pacemaker; X50.0XXA Overexertion from strenuous movement or load, initial encounter
CPT/HCPCS: 72100; 96372; 99283; J1885